=== PATIENT | female | born 1975 | race Caucasian/White ===

== ENCOUNTER 2016-12-30 09:02 | Emergency (ER) | payer MEDICAID ==
[~2016-12-30] VITALS: Ht 160 cm; Wt 53.0 kg
[2016-12-30] MEDS ORDERED: ONDANSETRON HCL 4MG/2ML VIAL IM ONE (09:45)
[2016-12-30] MEDS ORDERED: MORPHINE SULFATE 4 MG/ML CPJ (NOT FOR IM USE) IV ONE (09:45)
[2016-12-30 09:59] LABS: CLARITY URINE CLEAR (CLEAR); COLOR URINE YELLOW (YELLOW); GLUCOSE URINE NEGATIVE (NEGATIVE); KETONES URINE NEGATIVE (NEGATIVE); LEUKOCYTE ESTERASE URINE NEGATIVE (NEGATIVE); NITRITE URINE NEGATIVE (NEGATIVE); OCCULT BLOOD URINE NEGATIVE (NEGATIVE); PROTEIN URINE NEGATIVE (NEGATIVE); SPECIFIC GRAVITY URINE 1.017 (1.005-1.030); UROBILINOGEN URINE 0.2 E.U./dL (0.2-1.0)
[2016-12-30] MEDS ORDERED: ONDANSETRON HCL 4MG/2ML VIAL IV ONE ×2 (10:00→11:15)
[2016-12-30 10:21] LABS: BASOPHILS % 0.6 % (0.0-2.0); EOSINOPHILS % 1.4 % (0.0-5.0); HEMATOCRIT. 38.8 % (36.0-48.0); HEMOGLOBIN. 12.8 g/dL (12.0-16.0); LYMPHOCYTES % 34.4 % (20.0-50.0); MEAN CORPUSCULAR HEMOGLOBIN 30.3 pg (28.0-32.0); MEAN CORPUSCULAR VOLUME 91.8 fL (81.0-99.0); MEAN PLATELET VOLUME 7.2 fl (7.4-10.4); MONOCYTES % 8.3 % (2.0-8.0); NEUTROPHILS % 55.3 % (40.0-76.0); PLATELET 202 x1000/uL (130-400); RED BLOOD CELL COUNT 4.23 mill/uL (4.2-5.4); RED CELL DISTRIBUTION WIDTH 13.1 % (11.6-14.6); WHITE BLOOD COUNT 4.8 x1000/uL (4.5-11.0)
[2016-12-30 10:29] LABS: ALBUMIN 3.8 g/dL (3.4-5.0); ANION GAP 9; CALCIUM 8.5 mg/dL (8.5-10.1); CARBON DIOXIDE 28 mEq/L (21-32); CHLORIDE 107 mEq/L (98-107); INDEX HEMOLYSI 1 (1-3); INDEX ICTERIC 1 (1-4); INDEX LIPEMIC 1 (1-3); LIPASE 75 IU/L (73-393)
[2016-12-30 10:30] LABS: INR 1.1
[2016-12-30 10:34] LABS: ALANINE AMINOTRANSFERASE 23 IU/L (13-61); UREA NITROGEN BLOOD 13 mg/dL (7-21); eGFR > 60 mL/min (>60)
[2016-12-30] MEDS ORDERED: MAGNESIUM/ALUMINUM HYDROXIDE/SIMETHICONE 30ML UDC PO STA (11:06)
[2016-12-30] MEDS ORDERED: SODIUM CHLORIDE 0.9% 1,000 ML IV ONE (11:10)
[2016-12-30] MEDS ORDERED: PANTOPRAZOLE SODIUM 40 MG/VIAL IV ONE (11:15)
[2016-12-30 13:06] VITALS: BP 104/61
== END 2016-12-30 14:00 | disposition home or self-care (01) ==
LOC: ER 10:29
DX: K29.70 Gastritis, unspecified, without bleeding (principal); Z90.49 Acquired absence of other specified parts of digestive tract
CPT/HCPCS: 36415; 80053; 81003; 81025; 83690; 85025; 85610; 96361; 96374; 96375; 96376; 99285; C9113; J2270; J2405; J7030; Z7610

== ENCOUNTER 2017-05-18 07:10 | Emergency (ER) | payer MEDICAID ==
[~2017-05-18] VITALS: Ht 165.1 cm; Wt 52.0 kg
[2017-05-18] MEDS ORDERED: KETOROLAC 60MG/2ML VIAL IM ONE (09:30)
[2017-05-18 10:33] LABS: CLARITY URINE CLEAR (CLEAR); COLOR URINE YELLOW (YELLOW); GLUCOSE URINE NEGATIVE (NEGATIVE); KETONES URINE NEGATIVE (NEGATIVE); LEUKOCYTE ESTERASE URINE NEGATIVE (NEGATIVE); NITRITE URINE NEGATIVE (NEGATIVE); OCCULT BLOOD URINE NEGATIVE (NEGATIVE); PH URINE 5.5 (4.5-8.0); PROTEIN URINE NEGATIVE (NEGATIVE); SPECIFIC GRAVITY URINE 1.021 (1.005-1.030); UROBILINOGEN URINE 0.2 E.U./dL (0.2-1.0)
[2017-05-18 11:17] VITALS: BP 127/77
== END 2017-05-18 11:42 | disposition home or self-care (01) ==
LOC: ER 07:10
DX: M54.5 Low back pain (principal)
CPT/HCPCS: 81003; 81025; 96372; 99283; J1885; Z7610